=== PATIENT | female | born 1985 | race Caucasian/White ===

== ENCOUNTER 2017-10-31 18:25 | Inpatient (IN) | payer OTHER ==
[2017-10-31] MEDS ORDERED: MAALOX 30 ML SUSP *UDC PO (19:30)
[2017-10-31] MEDS ORDERED: MOM 30ML SUSPENSION UDC PO (19:30)
[2017-10-31] MEDS: risperiDONE 2 MG TAB PO (21:18)
[2017-11-01] MEDS: INFLUENZA QUADRIVALENT PF VACCINE 0.5ML SYRINGE (90686) IM (09:48)
[2017-11-01] MEDS: risperiDONE 2 MG TAB PO ×2 (09:48→22:02)
[2017-11-01] MEDS: FLUoxetine 20 MG CAP PO (14:02)
[2017-11-01] MEDS: traZODone 50 MG TAB PO (22:02)
[2017-11-02] MEDS: FLUoxetine 20 MG CAP PO (09:51)
[2017-11-02 12:40] LABS: HEMATOCRIT 42.1 % (36.0-47.0); HEMOGLOBIN 14.4 g/dl (12.0-16.0); MEAN CORPUSCULAR HEMOGLOBIN 29.3 pg (27.0-33.0); MEAN CORPUSCULAR HGB CONC 34.2 g/dl (32.0-36.5); MEAN CORPUSCULAR VOLUME 85.7 fl (80.0-96.0); PLATELET COUNT, AUTOMATED 276 10^3/uL (150-450); RED BLOOD COUNT 4.91 10^6/uL (4.00-5.40); RED CELL DISTRIBUTION WIDTH 13.1 % (11.5-14.5); WHITE BLOOD COUNT 11.1 10^3/uL (4.0-10.0)
[2017-11-02 13:10] LABS: ANION GAP 8 MEQ/L (8-16); BLOOD UREA NITROGEN 16 MG/DL (7-18); CALCIUM LEVEL 9.5 MG/DL (8.5-10.1); CARBON DIOXIDE LEVEL 27 MEQ/L (21-32); CHLORIDE LEVEL 104 MEQ/L (98-107); CREATININE FOR GFR 0.78 MG/DL (0.55-1.02); GLOMERULAR FILTRATION RATE > 60.0 (>60); GLUCOSE, FASTING 99 MG/DL (70-105); POTASSIUM SERUM 4.1 MEQ/L (3.5-5.1); SODIUM LEVEL 139 MEQ/L (136-145)
[2017-11-02] MEDS: PALIPERIDONE 6 MG ER TAB (INVEGA) PO (21:00)
[2017-11-02] MEDS: traZODone 50 MG TAB PO (21:46)
[2017-11-03 09:38] LABS: FREE T4 1.23 NG/DL (0.76-1.46)
[2017-11-03 09:38] LABS: FREE T3 2.8 PG/ML (2.2-4.0)
[2017-11-03] MEDS: FLUoxetine 20 MG CAP PO (10:49)
[2017-11-03] MEDS: PALIPERIDONE 6 MG ER TAB (INVEGA) PO (21:50)
[2017-11-04] MEDS: LEVOTHYROXINE 50MCG TABLET (0.05MG) PO (06:11)
[2017-11-04] MEDS: FLUoxetine 20 MG CAP PO (09:27)
[2017-11-04] MEDS: PALIPERIDONE PALMITATE 234 MG/1.5 ML INJ (INVEGA SUSTENNA)(J2426) IM (13:45)
[2017-11-04] MEDS: PALIPERIDONE 6 MG ER TAB (INVEGA) PO (21:00)
[2017-11-05] MEDS: LEVOTHYROXINE 50MCG TABLET (0.05MG) PO (06:18)
[2017-11-05] MEDS: FLUoxetine 20 MG CAP PO (09:00)
[2017-11-05] MEDS: PALIPERIDONE 6 MG ER TAB (INVEGA) PO (20:02)
[2017-11-05] MEDS: traZODone 50 MG TAB PO (20:02)
[2017-11-06] MEDS: LEVOTHYROXINE 50MCG TABLET (0.05MG) PO (06:03)
[2017-11-06] MEDS: FLUoxetine 20 MG CAP PO (09:00)
[2017-11-06] MEDS: PALIPERIDONE 6 MG ER TAB (INVEGA) PO ×2 (21:00→22:18)
[2017-11-06] MEDS: hydrOXYzine 10 MG TAB PO (22:18)
[2017-11-06] MEDS: traZODone 50 MG TAB PO (22:18)
[2017-11-07] MEDS: LEVOTHYROXINE 75MCG TABLET (0.075MG) PO (06:00)
[2017-11-07] MEDS: FLUoxetine 20 MG CAP PO (09:00)
[2017-11-07] MEDS: PALIPERIDONE 6 MG ER TAB (INVEGA) PO (10:20)
[2017-11-08] MEDS: LEVOTHYROXINE 75MCG TABLET (0.075MG) PO (05:50)
[2017-11-08] MEDS: FLUoxetine 20 MG CAP PO (09:00)
[2017-11-08] MEDS: PALIPERIDONE 6 MG ER TAB (INVEGA) PO (20:47)
[2017-11-09] MEDS: LEVOTHYROXINE 75MCG TABLET (0.075MG) PO (06:00)
[2017-11-09] MEDS: FLUoxetine 20 MG CAP PO (09:00)
[2017-11-09] MEDS: PALIPERIDONE 6 MG ER TAB (INVEGA) PO (20:48)
[2017-11-10] MEDS: LEVOTHYROXINE 75MCG TABLET (0.075MG) PO (06:00)
[2017-11-10 07:25] LABS: HEMATOCRIT 42.9 % (36.0-47.0); HEMOGLOBIN 14.9 g/dl (12.0-16.0); MEAN CORPUSCULAR HEMOGLOBIN 29.7 pg (27.0-33.0); MEAN CORPUSCULAR HGB CONC 34.7 g/dl (32.0-36.5); MEAN CORPUSCULAR VOLUME 85.6 fl (80.0-96.0); PLATELET COUNT, AUTOMATED 292 10^3/uL (150-450); RED BLOOD COUNT 5.01 10^6/uL (4.00-5.40); RED CELL DISTRIBUTION WIDTH 12.4 % (11.5-14.5); WHITE BLOOD COUNT 9.7 10^3/uL (4.0-10.0)
[2017-11-10 08:10] LABS: ALBUMIN 4.3 GM/DL (3.2-5.2); ALBUMIN/GLOBULIN RATIO 1.26 (1.00-1.93); ALKALINE PHOSPHATASE 74 U/L (45-117); ALT/SGPT 35 U/L (12-78); ANION GAP 7 MEQ/L (8-16); AST/SGOT 29 U/L (7-37); BILIRUBIN,TOTAL 0.6 MG/DL (0.2-1.0); BLOOD UREA NITROGEN 12 MG/DL (7-18); CALCIUM LEVEL 9.3 MG/DL (8.5-10.1); CARBON DIOXIDE LEVEL 28 MEQ/L (21-32); CHLORIDE LEVEL 102 MEQ/L (98-107); CREATININE FOR GFR 0.72 MG/DL (0.55-1.02); GLOMERULAR FILTRATION RATE > 60.0 (>60); GLUCOSE, FASTING 104 MG/DL (70-100); POTASSIUM SERUM 3.8 MEQ/L (3.5-5.1); SODIUM LEVEL 137 MEQ/L (136-145); TOTAL PROTEIN 7.7 GM/DL (6.4-8.2)
[2017-11-10] MEDS: FLUoxetine 20 MG CAP PO (08:52)
[2017-11-10] MEDS: ACETAMINOPHEN TAB 650MG DOSE (2X325MG) PO (17:58)
[2017-11-10] MEDS: PALIPERIDONE 6 MG ER TAB (INVEGA) PO (21:00)
[2017-11-11] MEDS: LEVOTHYROXINE 75MCG TABLET (0.075MG) PO (06:00)
[2017-11-11] MEDS: FLUoxetine 20 MG CAP PO (09:00)
[2017-11-11] MEDS: PALIPERIDONE 6 MG ER TAB (INVEGA) PO (21:00)
[2017-11-12] MEDS: LEVOTHYROXINE 75MCG TABLET (0.075MG) PO ×2 (05:46→05:55)
[2017-11-12] MEDS: FLUoxetine 20 MG CAP PO (09:49)
[2017-11-12] MEDS: PALIPERIDONE PALMITATE 156 MG/1ML INJ(INVEGA SUSTENNA)(J2426) IM (09:49)
== END 2017-11-12 12:30 | disposition home or self-care (01) | DRG 750 ==
LOC: M ED 18:25 → M ED INP 19:36 → M PSY 22:47
DX: F20.0 Paranoid schizophrenia (principal); Z91.19 Patient's noncompliance with other medical treatment and regimen; F32.9 Major depressive disorder, single episode, unspecified; F17.210 Nicotine dependence, cigarettes, uncomplicated; Z88.7 Allergy status to serum and vaccine; Z79.899 Other long term (current) drug therapy